=== PATIENT | male | born 1950 | race Caucasian/White ===

== ENCOUNTER 2024-08-31 05:40 | Day surgery (SDC) | payer OTHER, SELFPAY ==
[2024-08-31] VITALS (9 sets, daily range): BP systolic 136–151; BP diastolic 75–81; PULSE 66–71; RESP 16–18; TEMP 36.2–36.6; O2SAT 98–100; BMI 42.7
--- NOTE | 2024-08-31 | ESO_PTH ---
PATIENT: LEONARDO PARR LOC: EN U#:[id number] AGE/SX: 74/M ROOM: RE08/31/[address]: Dr. Leonardo Sanchez DO : 1950 BED: DIS: 08/31/2024 SPEC #: [id number] RECD: 08/31/24 12:58 STATUS: KACY CARMELA #: [id number] MARGARETH: 08/31/24 00:[address]: Leonardo Sanchez DEPT: SURGICAL PATHOLOGY RECD BY: Wang Mcgarry ENTERED: 08/31/24 12:58 SP TYPE: SANJUANA EPPERSON DR: Dr. Mitesh Qureshi DO Tissues: Esophagus, NOS Procedures: Surgery Specimen Level IV HEADER OPERATION: EGD with biopsy PRE-OP DIAGNOSIS: GERD, history of Blas's esophagus TISSUE SUBMITTED: A- Distal esophagus biopsy MICROSCOPIC DIAGNOSIS A. Distal esophagus., biopsy: * Columnar mucosa with rare goblet cells, consistent with Blas mucosa - see note. * Reactive epithelial cell change, negative for dysplasia. * Squamous mucosa negative for eosinophils. Note: The stated history of Blas's esophagus is noted. MICROSCOPIC DESCRIPTION Slides are reviewed. GROSS DESCRIPTION A. Received in fixative is one container labeled with the patient's name and designated Distal esophagus biopsy. The specimen consists of multiple irregular fragments of light bennett soft tissue that in aggregate measure 1.4 x 0.2 x 0.2 cm. The specimen is totally submitted in one cassette. Vega 08/31/2024 CPT:62650
--- NOTE | 2024-08-31 06:14 | PCM.PRE.AN2 ---
ASA Classification* ASA Classification ASA Classification: 3 Assessment & Plan Anesthesia* Anesthesia Assessment Anesthesia Assessment: Discussed sedation and/or anesthesia options, risks, benefits, and alternatives with patient/parents/legal guardian/POA. Questions invited. The patient/parents/legal guardian/POA seems to understand and agrees to proceed with anesthesia plan. Reviewed the physical assessment, medical history, allergy history and patient home medications list prior to surgery/procedure/anesthetic and documented any changes. Performed airway and anesthesia risk assessments. Anesthesia Type Anesthesia Type: MAC History Source History Obtained from:: Patient and Chart Anesthesia Focused Assessment* Temperature: 97.4 F Pulse Rate: 71 Blood Pressure: 151/75 Respiratory Rate: 18 Pulse Ox: 100 Oxygen Delivery Method: Room Air Airway Assessment Mouth opens: >3 cm Mallampati Score: III Teeth Condition: Caps/Crowns (Patient has a couple crowns. They are tight.) and Missing (Patient has several missing teeth. Rest are tight.) Neck Range of motion (ROM): Limited ROM (Somewhat decreased extension) Focused Labs Anesthesia Preop lab: CBC WBC 8.6 K/mm3 (4.4-11.0) 04/08/15 15:52 04/08/15 RBC 4.25 M/mm3 (4.6-6.2) L 04/08/15 15:52 04/08/15 Hgb 12.7 g/dl (13.0-16.5) L 04/08/15 15:52 04/08/15 Hct 38.4 % (40-54) L 04/08/15 15:52 04/08/15 Plt Count 245 K/mm3 (150-450) 04/08/15 15:52 04/08/15 CHEMISTRY Potassium 3.8 mmol/L (3.5-5.1) 04/08/15 15:52 04/08/15 Sodium 142 mmol/L (136-145) 04/08/15 15:52 04/08/15 BUN 25 mg/Dl (7-18) H 04/08/15 15:52 04/08/15 Creatinine 1.49 mg/dL (0.70-1.30) H 04/08/15 15:52 04/08/15 Glucose 100 mg/dL (70-110) 04/08/15 15:52 04/08/15 COAG Pre-Assessment Diagnosis/Proposed Procedure Planned Operative Procedure(s): EGD Anesthesia History 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 When Was Last Pacemaker Check QUESTION #4 FULL TEXT: You/Your Family Experience fever (hyperthermia) with Anesthesia Last Oral Intake Last Oral intake: Last Oral Intake NPO since 00:00 08/31/24 05:59 Meds taken in AM with sips of No 08/31/24 05:59 water? Meds patient instructed to take am of surgery PONV PONV - electrical prospecting engineer: PONV - electrical prospecting engineer Female No 08/28/24 14:58 HX of Motion Sickness No 08/28/24 14:58 HX of N/V After Surgery No 08/28/24 14:58 Non-Smoker Yes 08/28/24 14:58 Duration of Surgery greater No 08/28/24 14:58 than 60 minutes Number of Risk Factors 1 08/28/24 14:58 PONV Score Low Risk 08/28/24 14:58 Height & Weight Height & Weight: Anesthesia: Height & Weight Height 6 ft 1 in 08/31/24 05:59 Weight: 147 kg 08/31/24 05:59 Body Mass Index (BMI) 42.7 08/31/24 05:59 Respiratory Assessment Respiratory Assessment - electrical prospecting engineer: Respiratory Tract Infection Hx - electrical prospecting engineer Hx Respiratory Tract Infection No 08/28/24 14:58 STOP Sleep Apnea STOP Sleep Apnea - electrical prospecting engineer: STOP Sleep Apnea - electrical prospecting engineer Hx Hypertension Yes: CONTROLLED WITH MED 08/28/24 14:58 Hx Sleep Apnea Yes 08/28/24 14:58 CPAP Yes 08/28/24 14:58 BIPAP No 08/28/24 14:58 Do you snore loudly (louder than talking or can be heard Do you often feel tired/ fatigued/ sleepy during daytime? Has anyone observed you stop breathing during sleep? STOP Results Positive 08/28/24 14:58 QUESTION #5 FULL TEXT : Do you snore loudly (louder than talking or can be heard through closed doors)? 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 Specify any problems Hx of Preganancy in last 3 N/A 08/28/24 14:58 Months Nurse Filling Out Transfusion NBUCHER 08/28/24 14:58 & Questions: Date: 08/28/24 08/28/24 14:58 Time: 14:59 08/28/24 14:58 Patient unable to answer at this time (ie. confused, unrespo /Reproduction History /Reproductive History - electrical prospecting engineer: /Reproductive Hx- electrical prospecting engineer Hx Now No 08/28/24 14:58 Gestational Age (in weeks): EDC: Hx Hx Para Hx Section SAB No 08/28/24 14:58 PFSH Medical History Wears glasses High cholesterol Non-smoker CPAP (continuous positive airway pressure) dependence History of edema Renal insufficiency Morbid (severe) obesity due to excess calories Osteoarthritis of left knee Mixed hyperlipidemia Tear of meniscus of left knee History of Blas's esophagus Sleep apnea Asthma Gout GERD (gastroesophageal reflux disease) Mild intermittent asthma, uncomplicated Anemia, unspecified HTN (hypertension) Home Medications ?Medication ?Instructions ?Recorded ?Last Taken ?Type albuterol sulfate 90 mcg/actuation 1 puff inhalation Q4H PRN PRN 04/08/15 08/30/24 History aerosol inhaler (Ventolin HFA) Wheezing aspirin 81 mg tablet,delayed 81 mg PO DAILY 04/08/15 08/26/24 History release (Adult Low Dose Aspirin) fluticasone 100 mcg-salmeterol 50 2 puff inhalation BID 04/08/15 08/30/24 History mcg/dose blistr powdr for inhalation (Advair Diskus) uttcstzy-cpa-kcimm acid 0.4 1 ea PO DAILY 04/08/15 08/30/24 History mg-lycopene 300 mcg-lutein 250 mcg tablet (Centrum Silver) pantoprazole 40 mg tablet,delayed 40 mg PO DAILY 04/08/15 08/30/24 History release atorvastatin 10 mg tablet 10 mg PO QDAY 06/15/24 08/30/24 History colchicine 0.6 mg capsule 0.6 mg PO QDAY 06/15/24 08/30/24 History diltiazem HCl 120 mg tablet 120 mg PO Q8H 06/15/24 08/30/24 History (Cardizem) irbesartan 300 mg tablet (Avapro) 300 mg PO QDAY 06/15/24 08/30/24 History Allergy/AdvReac Type Severity Reaction Status Date / Time Penicillins (PCN) Allergy Swelling Verified 08/31/24 05:56 Family History Mother CAD (coronary artery disease) Father CVA (cerebral vascular accident) Hypertension Surgical History History of shoulder surgery (~02/2024) Hx of endoscopy Hx of colonoscopy Hx of ventral hernia repair H/O umbilical hernia repair Cataract extraction status Social History Smoking Status: Never smoker alcohol intake: never Review of Systems (Anesthesia) ROS Narrative System reviewed and no additional complaints, except as documented.
--- NOTE | 2024-08-31 06:31 | PCM.PRE.AN2 ---
ASA Classification* ASA Classification ASA Classification: 3 Assessment & Plan Anesthesia* Anesthesia Assessment Anesthesia Assessment: Discussed sedation and/or anesthesia options, risks, benefits, and alternatives with patient/parents/legal guardian/POA. Questions invited. The patient/parents/legal guardian/POA seems to understand and agrees to proceed with anesthesia plan. Reviewed the physical assessment, medical history, allergy history and patient home medications list prior to surgery/procedure/anesthetic and documented any changes. Performed airway and anesthesia risk assessments. Anesthesia Type Anesthesia Type: MAC History Source History Obtained from:: Patient, Chart and Significant Other (spouse) Anesthesia Focused Assessment* Temperature: 97.4 F Pulse Rate: 71 Blood Pressure: 151/75 Respiratory Rate: 18 Pulse Ox: 100 Oxygen Delivery Method: Room Air Airway Assessment Mouth opens: >3 cm Mallampati Score: III Teeth Condition: Missing (4 missing teeth) Focused Labs Anesthesia Preop lab: CBC WBC 8.6 K/mm3 (4.4-11.0) 04/08/15 15:52 04/08/15 RBC 4.25 M/mm3 (4.6-6.2) L 04/08/15 15:52 04/08/15 Hgb 12.7 g/dl (13.0-16.5) L 04/08/15 15:52 04/08/15 Hct 38.4 % (40-54) L 04/08/15 15:52 04/08/15 Plt Count 245 K/mm3 (150-450) 04/08/15 15:52 04/08/15 CHEMISTRY Potassium 3.8 mmol/L (3.5-5.1) 04/08/15 15:52 04/08/15 Sodium 142 mmol/L (136-145) 04/08/15 15:52 04/08/15 BUN 25 mg/Dl (7-18) H 04/08/15 15:52 04/08/15 Creatinine 1.49 mg/dL (0.70-1.30) H 04/08/15 15:52 04/08/15 Glucose 100 mg/dL (70-110) 04/08/15 15:52 04/08/15 COAG Pre-Assessment Diagnosis/Proposed Procedure Planned Operative Procedure(s): EGD Anesthesia History Anesthesia History - per assessment nurse: Anesthesia History - per assessment nurse Hx Hospitalization No 08/28/24 14:58 Any Problems With Anesthesia No 08/28/24 14:58 Cholinesterase deficiency No 08/28/24 14:58 You/Your Family Experience No 08/28/24 14:58 fever (hyperthermia) with Relationship Recent Exposure to Contagious No 08/31/24 05:59 Disease Does patient have nerve No 08/28/24 14:58 stimulator Patient instructed to have device shut off --Does patient have Pacemaker No 08/31/24 05:59 or ICD? When Was Last Pacemaker Check QUESTION #4 FULL TEXT: You/Your Family Experience fever (hyperthermia) with Anesthesia Last Oral Intake Last Oral intake: Last Oral Intake NPO since 00:00 08/31/24 05:59 Meds taken in AM with sips of No 08/31/24 05:59 water? Meds patient instructed to take am of surgery PONV PONV - per assessment nurse: PONV - per assessment nurse Female No 08/28/24 14:58 HX of Motion Sickness No 08/28/24 14:58 HX of N/V After Surgery No 08/28/24 14:58 Non-Smoker Yes 08/28/24 14:58 Duration of Surgery greater No 08/28/24 14:58 than 60 minutes Number of Risk Factors 1 08/28/24 14:58 PONV Score Low Risk 08/28/24 14:58 Height & Weight Height & Weight: Anesthesia: Height & Weight Height 6 ft 1 in 08/31/24 05:59 Weight: 147 kg 08/31/24 05:59 Body Mass Index (BMI) 42.7 08/31/24 05:59 Respiratory Assessment Respiratory Assessment - per assessment nurse: Respiratory Tract Infection Hx - per assessment nurse Hx Respiratory Tract Infection No 08/28/24 14:58 STOP Sleep Apnea STOP Sleep Apnea - per assessment nurse: STOP Sleep Apnea - per assessment nurse Hx Hypertension Yes: CONTROLLED WITH MED 08/28/24 14:58 Hx Sleep Apnea Yes 08/28/24 14:58 CPAP Yes 08/28/24 14:58 BIPAP No 08/28/24 14:58 Do you snore loudly (louder than talking or can be heard Do you often feel tired/ fatigued/ sleepy during daytime? Has anyone observed you stop breathing during sleep? STOP Results Positive 08/28/24 14:58 QUESTION #5 FULL TEXT : Do you snore loudly (louder than talking or can be heard through closed doors)? 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 Specify any problems Hx of Preganancy in last 3 N/A 08/28/24 14:58 Months Nurse Filling Out Transfusion NBUCHER 08/28/24 14:58 & Questions: Date: 08/28/24 08/28/24 14:58 Time: 14:59 08/28/24 14:58 Patient unable to answer at this time (ie. confused, unrespo /Reproduction History /Reproductive History - per assessment nurse: /Reproductive Hx- per assessment nurse Hx Now No 08/28/24 14:58 Gestational Age (in weeks): EDC: Hx Hx Para Hx Section SAB No 08/28/24 14:58 PFSH Medical History Wears glasses High cholesterol Non-smoker CPAP (continuous positive airway pressure) dependence History of edema Renal insufficiency Morbid (severe) obesity due to excess calories Osteoarthritis of left knee Mixed hyperlipidemia Tear of meniscus of left knee History of Blas's esophagus Sleep apnea Asthma Gout GERD (gastroesophageal reflux disease) Mild intermittent asthma, uncomplicated Anemia, unspecified HTN (hypertension) Home Medications ?Medication ?Instructions ?Recorded ?Last Taken ?Type albuterol sulfate 90 mcg/actuation 1 puff inhalation Q4H PRN PRN 04/08/15 08/30/24 History aerosol inhaler (Ventolin HFA) Wheezing aspirin 81 mg tablet,delayed 81 mg PO DAILY 04/08/15 08/26/24 History release (Adult Low Dose Aspirin) fluticasone 100 mcg-salmeterol 50 2 puff inhalation BID 04/08/15 08/30/24 History mcg/dose blistr powdr for inhalation (Advair Diskus) jylmirwn-fle-fvqoa acid 0.4 1 ea PO DAILY 04/08/15 08/30/24 History mg-lycopene 300 mcg-lutein 250 mcg tablet (Centrum Silver) pantoprazole 40 mg tablet,delayed 40 mg PO DAILY 04/08/15 08/30/24 History release atorvastatin 10 mg tablet 10 mg PO QDAY 06/15/24 08/30/24 History colchicine 0.6 mg capsule 0.6 mg PO QDAY 06/15/24 08/30/24 History diltiazem HCl 120 mg tablet 120 mg PO Q8H 06/15/24 08/30/24 History (Cardizem) irbesartan 300 mg tablet (Avapro) 300 mg PO QDAY 06/15/24 08/30/24 History Allergy/AdvReac Type Severity Reaction Status Date / Time Penicillins (PCN) Allergy Swelling Verified 08/31/24 05:56 Family History Mother CAD (coronary artery disease) Father CVA (cerebral vascular accident) Hypertension Surgical History History of shoulder surgery (~02/2024) Hx of endoscopy Hx of colonoscopy Hx of ventral hernia repair H/O umbilical hernia repair Cataract extraction status Social History Smoking Status: Never smoker alcohol intake: never Review of Systems (Anesthesia) ROS Narrative System reviewed and no additional complaints, except as documented.
--- NOTE | 2024-08-31 07:02 | PCM.HP.STD ---
HPI - General General Date of Admission: 08/31/24 Date of Service: 08/31/24 Chief Complaint: ramos's HPI Narrative Chief Complaint: Ramos's esophagus Details: LENOARDO PARR, is a 73 M who presents for surviallence of ramos's esophagus BGI established 8.3.22 w/ complaints of GERD and hx of Ramos esophagus. Treated with Pantoprazole 40 mg daily. Last EGD in 2016. Last colonoscopy in 2019 w/ recommendation for repeat in 10 years. OV 07.06.24 Pt has been doing well. He has only had about 2-3 episodes of heartburn over the past three years. Otherwise, it is well controlled with pantoprazole 40 mg daily. He mentions having issues with his CPAP machine and will be having a sleep study soon to investigate this. He denies abd pain, n/v, constipation or diarrhea. [facility] Medical History Wears glasses High cholesterol Non-smoker CPAP (continuous positive airway pressure) dependence History of edema Renal insufficiency Morbid (severe) obesity due to excess calories Osteoarthritis of left knee Mixed hyperlipidemia Tear of meniscus of left knee History of Ramos's esophagus Sleep apnea Asthma Gout GERD (gastroesophageal reflux disease) Mild intermittent asthma, uncomplicated Anemia, unspecified HTN (hypertension) Home Medications ?Medication ?Instructions ?Recorded ?Last Taken ?Type albuterol sulfate 90 mcg/actuation 1 puff inhalation Q4H PRN PRN 04/08/15 08/30/24 History aerosol inhaler (Ventolin HFA) Wheezing aspirin 81 mg tablet,delayed 81 mg PO DAILY 04/08/15 08/26/24 History release (Adult Low Dose Aspirin) fluticasone 100 mcg-salmeterol 50 2 puff inhalation BID 04/08/15 08/30/24 History mcg/dose blistr powdr for inhalation (Advair Diskus) dnnbmmwg-iai-voakn acid 0.4 1 ea PO DAILY 04/08/15 08/30/24 History mg-lycopene 300 mcg-lutein 250 mcg tablet (Centrum Silver) pantoprazole 40 mg tablet,delayed 40 mg PO DAILY 04/08/15 08/30/24 History release atorvastatin 10 mg tablet 10 mg PO QDAY 06/15/24 08/30/24 History colchicine 0.6 mg capsule 0.6 mg PO QDAY 06/15/24 08/30/24 History diltiazem HCl 120 mg tablet 120 mg PO Q8H 06/15/24 08/30/24 History (Cardizem) irbesartan 300 mg tablet (Avapro) 300 mg PO QDAY 06/15/24 08/30/24 History Allergy/AdvReac Type Severity Reaction Status Date / Time Penicillins (PCN) Allergy Swelling Verified 08/31/24 05:56 Family History Mother CAD (coronary artery disease) Father CVA (cerebral vascular accident) Hypertension Surgical History History of shoulder surgery (~02/2024) Hx of endoscopy Hx of colonoscopy Hx of ventral hernia repair H/O umbilical hernia repair Cataract extraction status Social History Smoking Status: Never smoker alcohol intake: never ROS Constitutional Constitutional: Denies fatigue, fever(s), poor appetite, weight gain or weight loss Gastrointestinal Gastrointestinal: Denies belching, bloating, change in bowel habits, change in stool character, chewing difficulty, coffee ground emesis, constipation, cramping, diarrhea, dyspepsia, dysphagia, early satiety, excessive flatus, fecal incontinence, heartburn, hematemesis, hematochezia, hemorrhoids, loose stools, melena, nausea, odynophagia, rectal bleeding, tenesmus, vomiting or weight changes Vital Signs Vital Signs Vital Signs: 08/31/24 05:59 08/31/24 05:59 08/31/24 06:22 Temperature 97.4 F L 97.4 F L Temperature Source Temporal Pulse Rate 71 71 Respiratory Rate 18 18 Respiratory Pattern Normal Blood Pressure 151/75 H 151/75 H Blood Pressure Mean 100 Blood Pressure Source Monitor Blood Pressure Position Semi-Fowlers Blood Pressure Location Left Arm Pulse Ox 100 100 Oxygen Delivery Method Room Air Room Air 08/31/24 06:33 Temperature 97.4 F L Temperature Source Pulse Rate 71 Respiratory Rate 18 Respiratory Pattern Blood Pressure 151/75 H Blood Pressure Mean Blood Pressure Source Blood Pressure Position Blood Pressure Location Pulse Ox 100 Oxygen Delivery Method Room Air Weight Weight: 324 lb 1.272 oz Body Mass Index (BMI) 42.7 Physical Exam Const alert, oriented x3, no apparent distress and healthy appearing General Appearance: cooperative GI normal to inspection, nondistended, normoactive bowel sounds, soft to palpation, non-tender and non-distended Percussion: normal to percussion Rectal Exam: deferred Assessment & Plan Assessment/Plan (1) History of Ramos's esophagus: (2) GERD (gastroesophageal reflux disease): PLAN: Assessment and Plan Assessment and Plan (1) GERD (gastroesophageal reflux disease): Status: Acute (2) History of Ramos's esophagus: Status: Acute Plan: This is a 73 yo male pt here today for f/u regarding his Barrets esophagus. Pt had his last EGD in 2016 and has been on Pantoprazole 40 mg daily since then. He is having no current GI symptoms. He will be scheduled for EGD to assess his upper Gi tract for Barrets esophagus. He is agreeable. -Continue Pantoprazole 40- mg dial -EGD -f/u as needed
--- NOTE | 2024-08-31 07:21 | OP.EGD_ITS ---
Patient Name: Manolo Muñoz Procedure Date: 08/31/2024 6:13 AM Date of : 1950 Age: 74 Procedure: Upper GI endoscopy Indications: Follow-up of Blas's esophagus Providers: Leonardo Sanchez DO Referring MD: Mitesh Qureshi Medicines: Monitored Anesthesia Care Patient Profile: This is a 74 year old male. Refer to note in patient chart for documentation of history and physical. Patient has symptoms of chronic heartburn. Complications: No immediate complications. Procedure: Pre-Anesthesia Assessment: - Prior to the procedure, a History and Physical was performed, and patient medications and allergies were reviewed. The patient is competent. The risks and benefits of the procedure and the sedation options and risks were discussed with the patient. All questions were answered and informed consent was obtained. Patient identification and proposed procedure were verified by the physician in the pre-procedure area. Mental Status Examination: alert and oriented. Airway Examination: normal oropharyngeal airway and neck mobility. Respiratory Examination: clear to auscultation. CV Examination: normal. Prophylactic Antibiotics: The patient does not require prophylactic antibiotics. Prior Anticoagulants: The patient has taken no anticoagulant or antiplatelet agents except for NSAID medication. ASA Grade Assessment: II - A patient with mild systemic disease. After reviewing the risks and benefits, the patient was deemed in satisfactory condition to undergo the procedure. The anesthesia plan was to use monitored anesthesia care (MAC). Immediately prior to administration of medications, the patient was re-assessed for adequacy to receive sedatives. The heart rate, respiratory rate, oxygen saturations, blood pressure, adequacy of pulmonary ventilation, and response to care were monitored throughout the procedure. The physical status of the patient was re-assessed after the procedure. After obtaining informed consent, the endoscope was passed under direct vision. Throughout the procedure, the patient's blood pressure, pulse, and oxygen saturations were monitored continuously. The gastroscope was introduced through the mouth, and advanced to the second part of duodenum. The upper GI endoscopy was accomplished without difficulty. The patient tolerated the procedure well. Scope In: 7:13:20 AM Scope Out: 7:16:51 AM Total Procedure Duration Time 0 hours 3 minutes 31 seconds Findings: There were esophageal mucosal changes secondary to established short-segment Blas's disease present in the lower third of the esophagus. The maximum longitudinal extent of these mucosal changes was 2 cm in length. Mucosa was biopsied with a cold forceps for histology in 4 quadrants at intervals of 1 cm in the lower third of the esophagus. One specimen bottle was sent to pathology. Verification of patient identification for the specimen was done. Estimated blood loss was minimal. Multiple 3 mm hyperplastic polyps with no bleeding and no stigmata of recent bleeding were found in the entire examined stomach. No gross lesions were noted in the duodenal bulb. Impression: - Esophageal mucosal changes secondary to established short-segment Blas's disease. Biopsied. - Multiple gastric polyps. - No gross lesions in the duodenal bulb. Recommendation: - Discharge patient to home. - Resume previous diet. - Continue present medications. - Await pathology results. Procedure Code(s): --- Professional --- 30260, Esophagogastroduodenoscopy, flexible, transoral; with biopsy, single or multiple CPT copyright 2021 [employer]. All rights reserved. The codes documented in this report are preliminary and upon final finisher forging dies review may be revised to meet current compliance requirements. Leonardo Sanchez DO 08/31/2024 7:20:49 AM This report has been signed electronically. Number of Addenda: 0 Note Initiated On: 08/31/2024 6:13 AM
--- NOTE | 2024-08-31 07:22 | OP.CCLET_ITS ---
08/31/2024 Mitesh Qureshi Re : Upper GI endoscopy procedure for Manolo Vasquezletty Qureshi This procedure was performed on Saturday, August 31, 2024. 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 Biopsied. - Multiple gastric polyps. - No gross lesions in the duodenal bulb. Recommendations : - Discharge patient to home. - Resume previous diet. - Continue present medications. - Await pathology results. My findings are described in the full procedure note, which is enclosed. If I can be of further assistance, please feel free to contact me at . Sincerely, Leonardo Sanchez, 08/31/2024 7:20:49 AM This report has been signed electronically.
--- NOTE | 2024-08-31 07:24 | PCM.POST.ANE ---
Anesthesia: Postop Eval I Current Vital Signs Temperature: 97.1 F Pulse Rate: 66 Blood Pressure: 150/77 Respiratory Rate: 16 Pulse Ox: 100 Oxygen Delivery Method: Room Air Assessment Airway patent: Yes Spontaneous unlabored respirations: Yes Mental status: Awake and Calm nausea: No Vomiting: No Anesthesia Complication: No Fluid Hydration Crystalloid volume administer (ml): 10 Total IV fluid infused: 10 Progress Note Anesthesia document: Postop Eval 1 completed: Yes
--- NOTE | 2024-08-31 11:40 | POSTOPAN2_ITS ---
Anesthesia Postop Eval I Sum Postop Eval Completion status Anesthesia document: Postop Eval 1 completed: Yes Anesthesia Postop Eval I Summary Anesthesia Postop Eval I Summary: Anesthesia Postop Eval I: Assessment Summary Airway patent Yes 08/31/24 07:24 [email or web address] Spontaneous unlabored Yes 08/31/24 07:24 [email or web address] respirations Mental status Awake,Calm 08/31/24 07:24 [email or web address] nausea No 08/31/24 07:24 [email or web address] Vomiting No 08/31/24 07:24 [email or web address] Anesthesia Postop Eval I: Fluid Summary Crystalloid volume administer 10 08/31/24 07:24 [email or web address] (ml) Colloids volume administered ( ml) Blood Product volume administered (ml) Total IV fluid infused 10 08/31/24 07:24 [email or web address] Anesthesia Postop Eval I: Summary Notes Anesthesia Complication No 08/31/24 07:24 [email or web address] Anesthesia Complication Comment: Post-operative progress note Anesthesia: Postop Eval II Evaluation Mental status: Awake Pain Level: 0 nausea: No Vomiting: No Complications Anesthesia Complication: No
--- NOTE | 2024-08-31 11:40 | PCM.POSTANE2 ---
Anesthesia Postop Eval I Sum Postop Eval Completion status Anesthesia document: Postop Eval 1 completed: Yes Anesthesia Postop Eval I Summary Anesthesia Postop Eval I Summary: Anesthesia Postop Eval I: Assessment Summary Airway patent Yes 08/31/24 07:24 CONSTRUCTION SUPERINTENDENT.[email or web address] Spontaneous unlabored Yes 08/31/24 07:24 CONSTRUCTION SUPERINTENDENT.DUNIA respirations Mental status Awake,Calm 08/31/24 07:24 CONSTRUCTION SUPERINTENDENT.DUNIA nausea No 08/31/24 07:24 CONSTRUCTION SUPERINTENDENT.DUNIA Vomiting No 08/31/24 07:24 CONSTRUCTION SUPERINTENDENT.DUNIA Anesthesia Postop Eval I: Fluid Summary Crystalloid volume administer 10 08/31/24 07:24 CONSTRUCTION SUPERINTENDENT.CONSTANZAOBY (ml) Colloids volume administered ( ml) Blood Product volume administered (ml) Total IV fluid infused 10 08/31/24 07:24 CONSTRUCTION SUPERINTENDENT.DUNIA Anesthesia Postop Eval I: Summary Notes Anesthesia Complication No 08/31/24 07:24 CONSTRUCTION SUPERINTENDENT.DUNIA Anesthesia Complication Comment: Post-operative progress note Anesthesia: Postop Eval II Evaluation Mental status: Awake Pain Level: 0 nausea: No Vomiting: No Complications Anesthesia Complication: No
== END 2024-08-31 08:15 | disposition home or self-care (01) ==
LOC: EN 05:41 → AC 05:42
PROVIDERS: PCP Family Medicine; Referring Provider Family Medicine; Visit Provider Internal Medicine Gastroenterology
PROC: 0DJ08ZZ Inspection of Upper Intestinal Tract, Via Natural or Artificial Opening Endoscopic (ICD-10-PCS; CPT 43235; principal; 2024-08-31 06:25)
DX: K22.70 Barrett's esophagus without dysplasia (principal); K31.7 Polyp of stomach and duodenum; Z79.82 Long term (current) use of aspirin; Z79.51 Long term (current) use of inhaled steroids; E78.2 Mixed hyperlipidemia; I10 Essential (primary) hypertension; K21.9 Gastro-esophageal reflux disease without esophagitis; Z79.899 Other long term (current) drug therapy; G47.30 Sleep apnea, unspecified; Z99.89 Dependence on other enabling machines and devices; J45.909 Unspecified asthma, uncomplicated; Z98.49 Cataract extraction status, unspecified eye
CPT/HCPCS: 43239; 88305; A4216